=== PATIENT | female | born 1955 | race Caucasian/White ===

== ENCOUNTER 2019-02-17 07:34 | Emergency (ER) | payer MEDICARE ==
[~2019-02-17] VITALS: Ht 157.5 cm; Wt 104.8 kg
[2019-02-17 07:37] VITALS: BP 160/93
--- NOTE | 2019-02-17 07:45 | NUR ---
Patient ambulated to bed 12. RN evaluating patient at bedside.
--- NOTE | 2019-02-17 07:45 | NUR ---
AAO X4 PT BIB NEIGHBOUR C/O RLQ PAIN "20" RADIATING TO [place], [place] THIS MORNING.C/O N/V. DENIES INJURY, FEVER, OR DIARRHEA MED HX:DM, HTN,GALL BLADDER REMOVAL, C SECTION
--- NOTE | 2019-02-17 07:48 | NUR ---
PATIENT AMBULATED TO BED 12.
[2019-02-17] MEDS ORDERED: NACL 0.9% 1,000 ML IV SCH (07:53)
[2019-02-17] MEDS ORDERED: ONDANSETRON 4 MG/2 ML VIAL IVP ONE (07:55)
[2019-02-17] MEDS ORDERED: KETOROLAC 30 MG/ML VIAL IVP ONE (07:55)
--- NOTE | 2019-02-17 07:58 | NUR ---
Dr. Harris is evaluating the patient at bedside.
[2019-02-17 08:20] LABS: BASOPHILS # (AUTO) 0.1 K/uL (0.00-0.22); BASOPHILS % (AUTO) 1.1 % (0.0-2.0); EOSINOPHILS # (AUTO) 0.2 K/uL (0-0.4); EOSINOPHILS % (AUTO) 1.8 % (0.0-4.0); HEMOGLOBIN 13.5 g/dL (12.0-16.0); LYMPHOCYTES # (AUTO) 2.6 K/uL (2.5-16.5); LYMPHOCYTES % (AUTO) 22.8 % (20.5-51.1); MEAN CORPUSCULAR HEMOGLOBIN 30 pg (27-31); MEAN CORPUSCULAR HGB CONC 34 g/dL (33-37); MONOCYTES # (AUTO) 0.8 K/uL (0.8-1.0); MONOCYTES % (AUTO) 7.2 % (1.7-9.3); NEUTROPHILS # (AUTO) 7.8 K/uL (1.8-7.7); NEUTROPHILS % (AUTO) 67.1 % (42.2-75.2); PLATELET COUNT (AUTO) 312 K/uL (140-450); RED BLOOD CELL COUNT(AUTO) 4.55 MIL/uL (4.20-5.40); RED CELL DISTRIBUTION WIDTH 12.7 % (11.6-13.7); WHITE BLOOD COUNT (AUTO) 11.6 K/uL (4.8-10.8)
[2019-02-17] MEDS ORDERED: cefTRIAXone 500 MG VIAL ONE (08:25)
[2019-02-17 08:30] LABS: APPEARANCE,URINE HAZY (CLEAR); BILIRUBIN,URINE NEGATIVE (NEGATIVE); BLOOD, URINE 3+ (NEGATIVE); COLOR,URINE YELLOW (YELLOW); LEUKOCYTE ESTERASE ,URINE 2+ (NEGATIVE); NITRITE, URINE POSITIVE (NEGATIVE); UGLUCOSE NEGATIVE (NEGATIVE)
[2019-02-17 08:34] LABS: ALBUMIN 4.1 g/dL (3.4-5.0); ANION GAP 18.3 (8-16); CREATININE 1.6 mg/dL (0.6-1.3); POTASSIUM 3.3 mmol/L (3.5-5.1); TOTAL BILIRUBIN 0.5 mg/dL (0.0-1.0)
[2019-02-17] MEDS ORDERED: MORPHINE SULFATE 10 MG/ML VIAL IVP ONE (08:35)
[2019-02-17 08:51] LABS: RBC,URINE 20-50 /HPF (0-5); WBC,URINE TOO MANY TO COUNT /HPF (0-5)
--- NOTE | 2019-02-17 08:53 | NUR ---
Patient taken to CT scan via wheelchair by tech.
[2019-02-17] MEDS ORDERED: NACL 0.9% 1,000 ML IV ONE (09:15)
[2019-02-17] MEDS ORDERED: MORPHINE SULFATE 4 MG/ML SYR IVP ONE (10:05)
--- NOTE | 2019-02-17 12:41 | NUR ---
REPORT GIVEN TO SUSHANT GARCIA AT [facility] [place] [id number]
[2019-02-17 13:08] VITALS: BP 141/72
--- NOTE | 2019-02-17 13:10 | NUR ---
Patient to be transferred to [facility]. Is being transferred due to higher level of care. Receiving facility has accepting physician and available space. ER physician has signed transfer form. Patient or responsible green party has agreed to transfer and signed form. Patient belongings inventoried and will be sent with patient. Copy of nursing notes, lab reports, EKG, Physicians Orders and X-rays to be sent with patient. Report called to SUSHANT Carrillo at receiving facility. [facility] service has been called for transfer. ETA is 20 MIN.
--- NOTE | 2019-02-19 13:36 | NUR ---
Late entry. Confirmed with RN that 0.9 NS IV completed at 0917 not 0817
== END 2019-02-17 13:10 | disposition short-term general hospital (02) ==
LOC: MED 07:34
DX: N12 Tubulo-interstitial nephritis, not specified as acute or chronic (principal); N13.2 Hydronephrosis with renal and ureteral calculous obstruction; E11.9 Type 2 diabetes mellitus without complications; K21.9 Gastro-esophageal reflux disease without esophagitis
CPT/HCPCS: 36415; 74176; 80053; 81001; 82150; 83605; 83690; 85025; 87040; 87086; 87186; 96365; 96375; 96376; 99285; J0696; J1885; J2270; J2405; J7030; J7060; 96361